=== PATIENT | male | born 1990 ===

== ENCOUNTER → 2020-04-27 | Day surgery (SDC) | payer BC, SELFPAY ==
[~2020-04-27] MED LIST: Acetaminophen/HYDROcodone 325-5 MG Tab PO ONE; Ketorolac 30 MG/ML SDV IVPUSH ONE; Lactated Ringers 1,000 ML IV SCH; Lidocaine 1% 20 ML MDV ONE; Midazolam 1 MG/ML 2 ML SDV ONE
--- NOTE | 2020-04-27 14:52 | OR ---
SURGEON: Vish Araujo M.D. 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 OPERATION: Vasovasostomy. DESCRIPTION OF PROCEDURE: The patient was placed in the supine position. External genital area was prepped and draped in sterile drapes. He was given 2 mg of Versed IV. 1% lidocaine was infiltrated around the site of the previous vasectomy on the right side. A small incision was made. The part of the vas that was occluded was taken out. The distal end was cannulated and was patent. The proximal end was patent and a slide was applied to the end and was checked by the pathologist who could see spermatozoa. The ends were reapproximated using interrupted 6-0 nylon sutures. All bleeding points were either fulgurated or tied with 4-0 chromic. The skin was approximated with interrupted 4-0 chromic sutures after a small square of Surgicel was introduced inside. The exact same thing was done on the left side. The left side, however, had what appeared to be a sperm granuloma that was excised. The patient tolerated the procedure well. Estimated blood loss under 5 mL. He was moved back to day surgery in good condition. SIMI / CRICKET /[id number]
== END | disposition home or self-care (01) ==
LOC: MW.SDS 07:00
PROVIDERS: ATTEND Urology
DX: N46.8 Other male infertility (principal); N49.1 Inflammatory disorders of spermatic cord, tunica vaginalis and vas deferens
CPT/HCPCS: 55400; A9270; J1885; J2001; J2250; J7120; 88104; 88304; 88329

== ENCOUNTER 2020-05-06 17:18 | Emergency (ER) | payer OTHER ==
--- NOTE | 2020-05-06 17:35 | EDM.PDOC ---
<Sean Olea - Last Filed: 05/06/20 19:03> ED HPI GENERAL MEDICAL PROBLEM - General Chief Complaint: Genitourinary Problem Stated Complaint: BLEEDING POST VESECTOMY REVERSAL Time Seen by Provider: 05/06/20 17:26 Source of Information: Reports: Patient History Limitations: Reports: No Limitations - History of Present Illness INITIAL COMMENTS - FREE TEXT/NARRATIVE: 30-year-old male presents with bleeding status post vasectomy reversal. ROS: A 10-point review of systems, other than pertinent positives and negatives as stated per HPI, is otherwise negative Past medical history: No additional pertinent history Past Surgical history: No additional pertinent history Social history: No additional pertinent history Family history: No additional pertinent history PHYSICAL EXAM General: AOx4, GCS = 15, No distress HEENT: dry mucous membrane Neck: supple, no meningismus, no Kernig or Brudzinski Cardiac: S1S2 RRR Respiratory: CTAB, no crackles or rales, no wheezing Abdomen: Soft, nontender, no rebound or guarding, nondistended, no pulsatile mass. Back: nontender Musculoskeletal: NVI distally, no deformity Neuro: No focal deficits, CN 2 - 12 WNL. - Related Data Allergies Allergy/AdvReac Type Severity Reaction Status Date / Time No Known Allergies Allergy Verified 05/06/20 17:29 Home Meds: Home Meds . [No Known Home Meds] 04/26/20 [History] Past Medical History HEENT History: Reports: None Cardiovascular History: Reports: None Respiratory History: Reports: None Gastrointestinal History: Reports: None Genitourinary History: Reports: None Musculoskeletal History: Reports: Fracture Other Musculoskeletal History: hx boxer fx Neurological History: Reports: None Psychiatric History: Reports: None Endocrine/Metabolic History: Reports: Obesity/BMI 30+ Hematologic History: Reports: None Immunologic History: Reports: None Oncologic (Cancer) History: Reports: None Dermatologic History: Reports: None - Past Surgical History Head Surgeries/Procedures: Reports: None HEENT Surgical History: Reports: Myringotomy w Tube(s), Other (See Below) Other HEENT Surgeries/Procedures: hx reconstructive ear surgery Cardiovascular Surgical History: Reports: None Respiratory Surgical History: Reports: None GI Surgical History: Reports: None Male Surgical History: Reports: Vasectomy Endocrine Surgical History: Reports: None Neurological Surgical History: Reports: None Musculoskeletal Surgical History: Reports: None Oncologic Surgical History: Reports: None Dermatological Surgical History: Reports: None Course - Re-Assessments/Exams Free Text/Narrative Re-Assessment/Exam: MDM: My differential diagnosis includes hematoma, infection, epididymitis. Departure - Departure Disposition: Home, Self-Care 01 Clinical Impression: Postoperative bleeding from incision - Discharge Information Referrals: PCP,None [Primary Care Provider] - Vish Araujo MD [Physician] - Forms: ED Department Discharge Additional Instructions: As long as you are not dizzy or sweaty or lightheaded and the scrotum is getting smaller while you lose blood and I think this blood was lost in the perioperative period and is not new ongoing bleeding. If any of those above symptoms develop you may return. Please call your doctor on Friday and let him know a blood count and ultrasound were done and give him an update. The following information is given to patients seen in the emergency department who are being discharged to home. This information is to outline your options for follow-up care. We provide all patients seen in our emergency department with a follow-up referral. The need for follow-up, as well as the timing and circumstances, are variable depending upon the specifics of your emergency department visit. If you don't have a primary care physician on staff, we will provide you with a referral. We always advise you to contact your personal physician following an emergency department visit to inform them of the circumstance of the visit and for follow-up with them and/or the need for any referrals to a consulting specialist. The emergency department will also refer you to a specialist when appropriate. This referral assures that you have the opportunity for follow-up care with a specialist. All of these measure are taken in an effort to provide you with optimal care, which includes your follow-up. Under all circumstances we always encourage you to contact your private physician who remains a resource for coordinating your care. When calling for follow-up care, please make the office aware that this follow-up is from your recent emergency room visit. If for any reason you are refused follow-up, please contact the [facility] Emergency Department at and asked to speak to the emergency department charge nurse. [facility] [address] [place] [address] [facility] [address] [place] [address] <IrinaHussein - Last Filed: 05/06/20 20:07> ED HPI GENERAL MEDICAL PROBLEM - History of Present Illness INITIAL COMMENTS - FREE TEXT/NARRATIVE: History of present illness: Had surgery 9 days ago. He had a reversal vasectomy. There was small lump consistent with sperm granuloma removed from the left vas as well. The patient came home and he says his scrotum was a size of a softball. Is now the size of a baseball more in the left side. It is bleeding quite a bit tonight. The patient is weak dizzy sweaty orthostatic. [] Review of systems: As per history of present illness and below otherwise all systems reviewed and negative. Past medical history: As per history of present illness and as reviewed below otherwise noncontributory. Surgical history: As per history of present illness and as reviewed below otherwise noncontributory. Social history: No reported history of drug or alcohol abuse. Family history: As per history of present illness and as reviewed below otherwise noncontributory. Physical exam: Constitutional - well developed, well-nourished and in no acute distress. She can stand abruptly without any orthostatic symptoms. HEENT - normocephalic, no evidence of trauma - external nose and mouth normal - no mass in neck and no JVD - mucosae moist EYES - full EOM, PERRL, no icterus - no evidence of inflammation, injection, or drainage Respiratory - no respiratory distress, equal bilateral expansion, Musculoskeletal no gross deformity of long bones or joints - no tenderness, swe lling or edema Neurologic - Alert and oriented times four - CN II-XII grossly intact - motor sensory and coordination symmetrically normal Psychiatric - appropriate mood and affect with normal thought content Hematologic - No petechiae or purpura - mucosa appropriate color and sclera not pale - normal nail bed color and refill Integument - no rash or evidence of trauma - normal turgor the patient has a baseball sized firm swelling of the left scrotum normal testicle on the right. External genitalia otherwise normal. A small incision on the lateral side of the left upper part of the scrotum has some dark venous blood which can be expressed when the scrotum itself is squeezed. Diagnostics: [] Therapeutics: [] Impression: [] Plan: [] Definitive disposition and diagnosis as appropriate pending reevaluation and review of above. ED ROS GENERAL - Review of Systems Review Of Systems: Comprehensive ROS is negative, except as noted in HPI. ED EXAM, RENAL/ - Physical Exam Exam: See Below Text/Narrative:: My physical exam as in the HPI Course - Vital Signs Last Recorded V/S: Last Vital Signs Temp 98.1 F 05/06/20 17:29 Pulse 76 05/06/20 17:29 Resp 17 05/06/20 17:29 BP 132/83 05/06/20 17:29 Pulse Ox 99 05/06/20 17:29 - Orders/Labs/Meds Labs: Laboratory Tests 05/06/20 05/06/20 Range/Units 17:35 19:15 WBC 9.58 (4.0-11.0) K/uL RBC 5.02 (4.50-5.90) M/uL Hgb 15.0 (13.0-17.0) g/dL Hct 43.6 (38.0-50.0) % MCV 86.9 (80.0-98.0) fL MCH 29.9 (27.0-32.0) pg MCHC 34.4 (31.0-37.0) g/dL RDW Std Deviation 38.7 (28.0-62.0) fl RDW Coeff of [place]ilet 12 (11.0-15.0) % Plt Count 318 (150-400) K/uL MPV 10.60 (7.40-12.00) fL Neut % (Auto) 62.2 (48.0-80.0) % Lymph % (Auto) 22.9 (16.0-40.0) % [place] % (Auto) 10.0 (0.0-15.0) % Eos % (Auto) 4.6 (0.0-7.0) % Baso % (Auto) 0.3 (0.0-1.5) % Neut # (Auto) 6.0 H (1.4-5.7) K/uL Lymph # (Auto) 2.2 (0.6-2.4) K/uL [place] # (Auto) 1.0 H (0.0-0.8) K/uL Eos # (Auto) 0.4 (0.0-0.7) K/uL Baso # (Auto) 0.0 (0.0-0.1) K/uL Nucleated RBC % 0.0 /100WBC Nucleated RBCs # 0 K/uL Urine Color YELLOW Urine Appearance CLEAR Urine pH 6.0 (5.0-8.0) Ur Specific [place] <= 1.005 (1.001-1.035) Urine Protein NEGATIVE (NEGATIVE) mg/dL Urine Glucose (UA) NEGATIVE (NEGATIVE) mg/dL Urine Ketones NEGATIVE (NEGATIVE) mg/dL Urine Occult Blood NEGATIVE (NEGATIVE) Urine Nitrite NEGATIVE (NEGATIVE) Urine Bilirubin NEGATIVE (NEGATIVE) Urine Urobilinogen 0.2 (<2.0) EU/dL Ur Leukocyte Esterase NEGATIVE (NEGATIVE) Urine RBC 0-1 (0-2/HPF) Urine WBC 0-1 (0-5/HPF) Ur Epithelial Cells RARE (NONE-FEW) Urine Bacteria RARE (NEGATIVE) Departure - Departure Time of Disposition: 20:07 Condition: Good Sepsis Event Note (ED) - Focused Exam Vital Signs: Vital Signs Temp Pulse Resp BP Pulse Ox 05/06/20 17:29 98.1 F 76 17 132/83 99
--- NOTE | 2020-05-06 19:59 | US ---
Testicular ultrasound: Multiple real-time images of both testicles were obtained. Comparison: No previous study. Both testicles have a homogeneous ultrasound appearance. No intratesticular abnormality is appreciated. Both arterial and venous blood flow are seen within the testicles. Left-sided hydrocele is noted. Impression: 1. Blood flow noted within both testicles. 2. Left-sided hydrocele. Diagnostic code #3 This report was dictated in MDT
--- NOTE | 2020-05-06 20:02 | US ---
EXAM DATE: 05/06/20 PATIENT'S AGE: 30 Testicular ultrasound: Multiple real-time images of both testicles were obtained. Comparison: No previous study. Both testicles have a homogeneous ultrasound appearance. No intratesticular abnormality is appreciated. Both arterial and venous blood flow are seen within the testicles. Left-sided hydrocele is noted. Impression: 1. Blood flow noted within both testicles. 2. Left-sided hydrocele. Diagnostic code #3 This report was dictated in MDT Report Signed by Proxy. AMINATA
== END 2020-05-06 20:30 | disposition home or self-care (01) ==
LOC: MW.ED 17:18
DX: N99.820 Postprocedural hemorrhage of a genitourinary system organ or structure following a genitourinary system procedure (principal); E66.9 Obesity, unspecified; Z68.33 Body mass index [BMI] 33.0-33.9, adult
CPT/HCPCS: 36415; 76870; 76870-26; 81001; 85025; 93976; 93976-26; 99282; 99284-25

== ENCOUNTER 2021-09-24 06:03 | Emergency (ER) | payer SELFPAY ==
--- NOTE | 2021-09-24 06:56 | CR ---
Indication: Cough Comparison: None available. Technique: Single AP view chest Findings: There is no focal consolidation, effusion, or pneumothorax. The cardiomediastinal silhouette is within normal limits. The bony thorax is grossly intact. Impression: No acute cardiopulmonary abnormality. Dictated by Emre Mares MD @ 09/24/2021 6:54:51 AM (Electronically Signed)
[2021-09-24 07:05] LABS: CORONAVIRUS COVID-19 NAA POSITIVE (NEGATIVE); INFLUENZA A NAA NEGATIVE (NEGATIVE); INFLUENZA B NAA NEGATIVE (NEGATIVE)
--- NOTE | 2021-09-24 07:35 | EDM.PDOC ---
ED HPI GENERAL MEDICAL PROBLEM - General Chief Complaint: Respiratory Problem Stated Complaint: CHILLS, FEVER Time Seen by Provider: 09/24/21 07:10 - History of Present Illness INITIAL COMMENTS - FREE TEXT/NARRATIVE: 31-year-old male presents to the emergency department complaint of body aches and fevers for about 24 hours. Cough. Nonvaccinated. No exacerbating relieving factors. Moderate symptoms Lower Back Pain Score (Numeric/FACES): 4 - Related Data Allergies Allergy/AdvReac Type Severity Reaction Status Date / Time No Known Allergies Allergy Verified 09/24/21 06:09 Home Meds: Home Meds . [No Known Home Meds] 04/26/20 [History] Past Medical History HEENT History: Reports: None Cardiovascular History: Reports: None Respiratory History: Reports: None Gastrointestinal History: Reports: None Genitourinary History: Reports: None Musculoskeletal History: Reports: Fracture Other Musculoskeletal History: hx boxer fx Neurological History: Reports: None Psychiatric History: Reports: None Endocrine/Metabolic History: Reports: Obesity/BMI 30+ Hematologic History: Reports: None Immunologic History: Reports: None Oncologic (Cancer) History: Reports: None Dermatologic History: Reports: None - Infectious Disease History Infectious Disease History: Reports: None - Past Surgical History Head Surgeries/Procedures: Reports: None HEENT Surgical History: Reports: Myringotomy w Tube(s), Other (See Below) Other HEENT Surgeries/Procedures: hx reconstructive ear surgery Cardiovascular Surgical History: Reports: None Respiratory Surgical History: Reports: None GI Surgical History: Reports: None Male Surgical History: Reports: Vasectomy Endocrine Surgical History: Reports: None Neurological Surgical History: Reports: None Musculoskeletal Surgical History: Reports: None Oncologic Surgical History: Reports: None Dermatological Surgical History: Reports: None Social & Family History - Family History Family Medical History: No Pertinent Family History - Tobacco Use Tobacco Use Status *Q: Never Tobacco User - Caffeine Use Caffeine Use: Reports: Coffee - Recreational Drug Use Recreational Drug Use: No ED ROS GENERAL - Review of Systems Review Of Systems: See Below Constitutional: Reports: Fever Respiratory: Reports: Cough GI/Abdominal: Denies: Abdominal Pain Skin: Reports: No Symptoms ED EXAM, GENERAL - Physical Exam Exam: See Below Free Text/Narrative:: CONSTITUTIONAL: well appearing in no acute distress SKIN: dry, and intact without rash HENT: Normocephalic, atraumatic, NECK: normal range of motion PULMONARY: normal chest rise and fall, no respiratory distress or stridor NEUROLOGIC: normal speech, moves all extremities, grossly non-focal MUSCULOSKELETAL: no gross deformities, atraumatic PSYCHIATRIC: normal mood and affect Course - Vital Signs Text/Narrative:: Ddx: pneumonia Influenza, Covid, viral syndrome, other patient presents as outlined above. Patient positive for Covid. No marked hypoxia. Supportive treatment return precautions and PCP follow-up. Last Recorded V/S: Last Vital Signs Temp 37.8 C 09/24/21 07:21 Pulse 107 H 09/24/21 07:21 Resp 16 09/24/21 07:21 BP 124/82 09/24/21 07:21 Pulse Ox 98 09/24/21 07:21 - Orders/Labs/Meds Labs: Laboratory Tests 09/24/21 Range/Units 06:14 Influenza Type A RNA NEGATIVE (NEGATIVE) Influenza Type B RNA NEGATIVE (NEGATIVE) SARS-CoV-2 RNA (FREDDY) POSITIVE H (NEGATIVE) Departure - Departure Time of Disposition: 07:33 Disposition: Home, Self-Care 01 Condition: Good Clinical Impression: COVID-19 - Discharge Information Referrals: PCP,None [Primary Care Provider] - Sepsis Event Note (ED) - Evaluation Sepsis Screening Result: No Definite Risk - Focused Exam Vital Signs: Vital Signs Temp Pulse Resp BP Pulse Ox 09/24/21 07:21 37.8 C 107 H 16 124/82 98 09/24/21 06:09 38.5 C H 109 H 19 125/74 96
[2021-09-24] MEDS ORDERED: Acetaminophen 500 MG Tab PO ONE (07:45)
== END 2021-09-24 07:57 | disposition home or self-care (01) ==
LOC: MW.ED 06:03
DX: U07.1 COVID-19 (principal); E66.9 Obesity, unspecified; Z68.31 Body mass index [BMI] 31.0-31.9, adult
CPT/HCPCS: 0240U; 71045; 99283; A9270